=== PATIENT | female | born 1980 | race Caucasian/White ===

== ENCOUNTER 2022-08-22 16:58 | Outpatient (CLI) | payer OTHER, SELFPAY ==
--- NOTE | 2022-08-22 | DI.RAD_ITS ---
Exam(s) XR KNEE LT 3V AP,LAT,DARY EXAM: XR KNEE LT 3V AP,LAT,DARY CLINICAL HISTORY: LEFT KNEE PAIN M25.562 TRIPPED AND JAMMED KNEE HX 2 SURGERIES. TECHNIQUE: 2D digital imaging was performed of the left knee. Three images were obtained. Merchant ,AP, lateral and PA tunnel views were obtained. COMPARISON: No exams were available for comparison FINDINGS: BONES: No acute fracture is present. No bony destructive lesion is seen. Postsurgical changes in the proximal tibia. JOINTS: The knee is normally aligned. No joint effusion is seen. SOFT TISSUE: Normal. IMPRESSION: No acute fracture or dislocation. DATA REPOSITORY: RADIATION DOSE DELIVERED:
--- OUTSIDE RECORDS SUMMARY | 2022-08-22 17:00 | XMS_ITS | Continuity of Care Document ---
Author Name Unknown Organization [facility] Address [address] [place] [address] Encounter NCTY_MI Date(s): 06/01/22 - 06/01/[address] [id number] Encounter Diagnosis Knee pain(Discharge Diagnosis) - 06/01/22 Discharge Disposition: Home or Self Care Attending Physician: Alejandra Yeboah MD Admitting Physician: Alejandra Yeboah MD Allergies, Adverse Reactions, Alerts No Known Medication Allergies Functional Status 06/01/22 Family Member Travel History No recent t ravel Recent Travel History No recent travel Other exposure to Infectious Disease Non e Medications No Known Medications Mental Status 06/01/22 Eye Opening Response Aiden Spontaneous ly Best Verbal Response Prosser Oriented Best Motor Response Aiden Obeys comman ds Prosser Coma Score 15 Results Laboratory List Name Date Drug Screen Urine 06/01/22 Urinalysis with Micro if Indicated and C ulture if Indicated 06/01/22 Alcohol Level 06/01/22 CBC w/ Diff 06/01/22 Comprehensive Metabolic Panel 06/01/22 Automated Diff 06/01/22 Most recent to oldest [Reference Range]: 1 WBC [5.0-10.0 x10^3/mcL] 5.8 x10^3/mcL (06/01/22 10:16 AM) RBC [4.1-5.3 x10^6/mcL] 4.3 x10^6/mcL (06/01/22 10:16 AM) Neutro Auto [40.0-75.0 %] 59.1 % (06/01/22 10:16 AM) Lymph Auto [20.0-50.0 %] 30.2 % (06/01/22 10:16 AM) [place] Auto [2.0-15.0 %] 5.7 % (06/01/22 10:16 AM) Basophil Auto [0.0-1.0 %] 1.0 % (06/01/22 10:16 AM) BUN [7-18 mg/dL] 15 mg/dL (06/01/22 10:16 AM) U Amph Scrn [Negative] Negative (06/01/22 11:15 AM) UA Color Straw (06/01/22:15 AM) Glucose Level [74-106 mg/dL] 100 mg/dL (06/01/22 10:16 AM) Potassium Level [3.5-5.1 mmol/L] 3.8 mmo l/L (06/01/22 10:16 AM) U Benzodia Scrn [Negative] Negative (06/01/22 11:15 AM) MCV [80.0-96.0] 100.7 *HI* (06/01/22 10:16 AM) UA Urobilinogen Normal (06/01/22 11:15 AM) UA Bili [Negative] Negative (06/01/22 11:15 AM) UA Ketones Negative (06/01/22 11:15 AM) AST [15-37 unit/L] 23 unit/L (06/01/22 10:16 AM) ALT [14-59 unit/L] 38 unit/L (06/01/22 10:16 AM) MCHC [31.0-35.0 g/dL] 32.9 g/dL (06/01/22 10:16 AM) Sodium Level [136-145 mmol/L] 144 mmol/L (06/01/22 10:16 AM) UA Leuk Est Negative (06/01/22 11:15 AM) UA Nitrite Negative (06/01/22 11:15 AM) UA Glucose [Negative] Negative (06/01/22 11:15 AM) Hct [37.0-47.0 %] 42.9 % (06/01/22 10:16 AM) U Cocaine Scrn [Negative] Negative (06/01/22 11:15 AM) Calcium Level [8.5-10.1 mg/dL] 9.3 mg/dL (06/01/22 10:16 AM) Albumin Level [3.4-5.0 g/dL] 4.0 g/dL (06/01/22 10:16 AM) Protein Total [6.4-8.2 g/dL] 7.2 g/dL (06/01/22 10:16 AM) UA Protein Negative (06/01/22 11:15 AM) MCH [26.0-32.0 pg] 33.1 pg *HI* (06/01/22 10:16 AM) Neutro Absolute 3.4 x10^3/mcL *NA* (06/01/22 10:16 AM) Bilirubin Total [0.2-1.0 mg/dL] 0.2 mg/d L (06/01/22 10:16 AM) Hgb [12.0-16.0 g/dL] 14.1 g/dL (06/01/22 10:16 AM) Alk Phos [46-146 unit/L] 79 unit/L (06/01/22 10:16 AM) UA Blood Negative (06/01/22 11:15 AM) Ethanol Level [0-10 mg/dL] 277 mg/dL *HI* (06/01/22 10:16 AM) UA Spec Grav <=1.005 *NA* (06/01/22 11:15 AM) Platelets [130-450 x10^3/mcL] 257 x10^3/ mcL (06/01/22 10:16 AM) CO2 [21-32 mmol/L] 27 mmol/L (06/01/22 10:16 AM) U Dania Scrn [Negative] Negative (06/01/22 11:15 AM) UA pH 6.0 *NA* (06/01/22 11:15 AM) U Opiate Scrn [Negative] Negative (06/01/22 11:15 AM) eGFR Non-AA [>=60] 88 (06/01/22 10:16 AM) eGFR AA [>=60] 88 (06/01/22 10:16 AM) UA Appear Clear (06/01/22 11:15 AM) Chloride Level [98-107 mmol/L] 106 mmol/ L (06/01/22 10:16 AM) U Oxy Scrn [Negative] Negative (06/01/22 11:15 AM) U PCP Scrn [Negative] Negative (06/01/22 11:15 AM) RDW-CV [11.7-17.0 %] 13.2 % (06/01/22 10:16 AM) U THC Scr [Negative] Positive *ABN* (06/01/22 11:15 AM) U PPX Scr [Negative] Negative (06/01/22 11:15 AM) U Methadone Scr [Negative] Negative (06/01/22 11:15 AM) Imm Gran Auto [0.0-0.9 %] 0.2 % (06/01/22 10:16 AM) U Buprenorph Scr [Negative] Negative (06/01/22 11:15 AM) U mAMP Scr [Negative] Negative (06/01/22 11:15 AM) U TCA Scr [Negative] Negative (06/01/22 11:15 AM) Creatinine Level [0.55-1.02 mg/dL] 0.85 mg/dL (06/01/22 10:16 AM) Eos, Auto [1.0-6.0 %] 3.8 % (06/01/22 10:16 AM) Vital Signs Most recent to oldest [Reference Range]: 1 2 Temperature Temporal Artery [36-38 Deg C ] 35.9 Deg C *LOW* (06/01/22 9:29 AM) Peripheral Pulse Rate [60-100 bpm] 88 bp m (06/01/22 10:45 AM) 89 bpm (06/01/22 9:29 AM) Respiratory Rate [12-24 br/min] 16 br/mi n (06/01/22 10:45 AM) 18 br/min (06/01/22 9:29 AM) Blood Pressure [90-140/60-90 mmHg] 123/9 0mmHg (06/01/22 10:45 AM) 134/98mmHg (06/01/22 9:29 AM) Weight Dosing 77.11 kg (06/01/22 9:40 AM) Weight Estimated 77.11 kg (06/01/22 9:29 AM) Height/Length Dosing 172.000 cm (06/01/22 9:40 AM) Height/Length Estimated 172.000 cm (06/01/22 9:29 AM) Social History Social History Type Response Tobacco Never tobacco user T obacco Use:. Sex Female Hospital Discharge Instructions Patient Education 06/01/2022 10:57:15 Acute Pain, Adult Acute Pain, Adult Acute pain is a type of sudden pain that may last for just a few days or for as long as six months.It is often related to an illness, injury, or medical procedure. Acute pain may be mild, moderate, or severe. Pain can make it hard for you to do your normal, daily activities. It can cause anxiety and lead toother problems if it is left untreated. Treatment depends on the cause and severity of your pain. Acute pain usually goes away once your injury has healed or you are no longer ill. Follow these instructions at home: Medicines ??? Take pygl-bea-nnxeexe and prescription medicines only as told by your health care provider. ??? Take the lowest dose of medicine for the shortest amount of time needed to relieve the pain. ??? If you are taking prescription pain medicine: ??? Do not stop taking the medicine suddenly. Talk to your health care provider about how and when to discontinue prescription medicine. ??? Do not take more pills than told by your health care provider even if your pain is severe. ??? Do not take other hpqv-fdo-yuetzdx pain medicines in addition to prescription pain medicine unless told by your health care provider. ??? Ask your health care provider if the medicine requires you to avoid driving or using heavy machinery. ??? Ask your health care provider if the medicine can cause constipation. You may need to take these actions to prevent or treat constipation: ??? Drink enough fluid to keep your urine pale yellow. ??? Eat foods that are high in fiber, such as beans, whole grains, and fresh fruits and vegetables. ??? Take iwpm-ymn-tehiytu or prescription medicines. ??? Limit foods that are high in fat and processed sugars, such as fried or sweet foods. Managing pain, stiffness, and swelling If directed, put ice on the affected area. To do this: ??? Put ice in a plastic bag. ??? Place a towel between your skin and the bag. ??? Leave the ice on for 20 minutes, 2???3 times a day. If directed, apply heat to the affected area as often as told by your health care provider. Use theheat source that your health care provider recommends, such as a moist heat pack or a heating pad. ??? Place a towel between your skin and the heat source. ??? Leave the heat on for 20???30 minutes. ??? Remove the heat if your skin turns bright red. This is especially important if you are unable to feel pain, heat, or cold. You may have a greater risk of getting burned. Activity ??? Rest as told by your health care provider. ??? Return to your normal activities as told by your health care provider. Ask your health care provider what activities are safe for you. General instructions ??? Check your pain level as told by your health care provider. ??? Ask your health care provider if other strategies such as distraction, relaxation, or physical therapies can help your pain. ??? Keep all follow-up visits as told by your health care provider. This is important. Contact a health care provider if: ??? Your pain is not controlled by medicine. ??? Your pain does not improve or gets worse. ??? You have side effects from pain medicines, such as vomiting or confusion. Get help right away if you: ??? Have severe pain. ??? Have trouble breathing. ??? Lose consciousness. ??? Have chest pain or pressure that lasts for more than a few minutes, or if you have other symptoms along with chest pain, including if you: ??? Have pain or discomfort in one or both arms, your back, neck, jaw, or stomach. ??? Have shortness of breath. ??? Break out in a cold sweat. ??? Feel nauseous. ??? Become light-headed. These symptoms may represent a serious problem that is an emergency. Do not wait to see if the symptoms will go away. Get medical help right away. Call your local emergency services (911 in the [place] Do not drive yourself to the hospital. Summary ??? Acute pain may be mild, moderate, or severe. It usually goes away once your injury has healed or you are no longer ill. ??? Take woeb-xgf-bhogxti and prescription medicines only as told by your health care provider. ??? Ask your health care provider if the medicine prescribed to you can cause constipation. ??? Contact a health care provider if your pain is not controlled by medicine. This information is not intended to replace advice given to you by your health care provider. Make sure you discuss any questions you have with your health care provider. Document Revised: 08/08/2019 Document Reviewed: 08/08/2019 Elsevier Patient Education ?? 2021 [employer]. 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 Last night she took for the first time a 5 mg edible or ??marajuana and and smoked a few hits and drank alcohol as well (She drank 1-2 drinks) pt states I'm out of it. PT keeps sta History Of Present Illness: Patient seemed altered this morning patient had taken 5 mg??of an edible last night??it did not seem to do anything for her pain so she took a couple??hits off of??marijuana pipe??she then told her that she later had??couple of drinks.?? When he went to wake her up this morning she seemed quite out of it.?? 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 Patient is very nervous about being here she has had 16 surgeries on her leftknee has neuropathy Review of Systems: see hpi for ros Physical Exam Vitals & Measurements T:??35.9?C ??(Temporal Artery)?? HR:??88??(Peripheral)?? RR:??16?? BP:??123/90?? SpO2:??99%?? HT:??172.000??cm?? WT:??77.11??kg??(Estimated)?? O2 Therapy:??Room air?? General: Alert and oriented, well nourished,?No??acute distress Eye: PER?Normal??conjunctiva,??No??scleral icterus HENT: Normocephalic,??nontraumatic??Normal hearing Lungs: Clear to auscultation,?Non-labored?? respiration Heart:?Normal?? rate,?Regular??rhythm,?No??murmur,?No??gallop,?No??edema Chest: wall excursion wnl no abnormal movements no obvious deformities Abdomen: Soft, non-tender, non-distended,??No??masses Musculoskeletal:?Normal?? range of motion and strength,??tenderness of left knee however appearsto be chronic??normal range of motion??of left hip??area??does not appear to be acute??left knee pain Skin: Skin is warm, dry and pink,?No??rashes,?No??lesions Neurologic: Awake, alert and oriented Psychiatric: Cooperative, appropriate mood and affect Medical Decision Making: For MDM please see under assessment and plan Procedure No Qualifying Data Assessment/Plan 1.??Knee pain??M25.569 Patient with chronic left knee pain patient had tried to treat her pain??with a drink??last night??and thinks that she may have drank more than she??thus causing her altered mental status did discusswith her??that her elbow may also have contributed since that was a new??substance that she had taken.?? Encouraged her to try to follow-up with pain specialist tomorrow??patient is discouraged that she has tried 17 different??physician she states regarding her knee pain.?? Patient is discharged into the care of her . Ordered: Discharge Patient, 06/01/22 11:57:00 EST, Home Independently, Constant Indicator ?? Patient Education Acute Pain, Adult Follow Up With When Contact Information Follow up with primary care provider Within 1 to 2 weeks Additional Instructions: Problem List/Past Medical History Ongoing No qualifying data Historical No qualifying data Medication Administration Given 0.9% NaCl bolus, 1 L, IV Bolus Ativan, 0.5 mg, IV Push Allergies No Known Medication Allergies Social History Alcohol Current, Liquor, 3-5 times per week Electronic Cigarette/Vaping Electronic Cigarette Use: Never. Substance Use Marijuana Tobacco Never tobacco user Tobacco Use:. Lab Results CBC and Differential?? LATEST RESULTS?? WBC?? 06/01/22 10:16?? 5.8?? RBC?? 06/01/22 10:16?? 4.3?? Hgb?? 06/01/22 10:16?? 14.1?? Hct?? 06/01/22 10:16?? 42.9?? MCV?? 06/01/22 10:16?? 100.7 ??High?? MCH?? 06/01/22 10:16?? 33.1 ??High?? MCHC?? 06/01/22 10:16?? 32.9?? RDW-CV?? 06/01/22 10:16?? 13.2?? Platelets?? 06/01/22 10:16?? 257?? Neutro Auto?? 06/01/22 10:16?? 59.1?? Lymph Auto?? 06/01/22 10:16?? 30.2?? [place] Auto?? 06/01/22 10:16?? 5.7?? Eos, Auto?? 06/01/22 10:16?? 3.8?? Basophil Auto?? 06/01/22 10:16?? 1.0?? Imm Gran Auto?? 06/01/22 10:16?? 0.2?? Neutro Absolute?? 06/01/22 10:16?? 3.4? Routine Chemistry?? LATEST RESULTS?? Sodium Level?? 06/01/22 10:16?? 144?? Potassium Level?? 06/01/22 10:16?? 3.8?? Chloride Level?? 06/01/22 10:16?? 106?? CO2?? 06/01/22 10:16?? 27?? Alk Phos?? 06/01/22 10:16?? 79?? AST?? 06/01/22 10:16?? 23?? ALT?? 06/01/22 10:16?? 38?? BUN?? 06/01/22 10:16?? 15?? Glucose Level?? 06/01/22 10:16?? 100?? Creatinine Level?? 06/01/22 10:16?? 0.85?? eGFR AA?? 06/01/22 10:16?? 88?? eGFR Non-AA?? 06/01/22 10:16?? 88?? Calcium Level?? 06/01/22 10:16?? 9.3?? Protein Total?? 06/01/22 10:16?? 7.2?? Albumin Level?? 06/01/22 10:16?? 4.0?? Bilirubin Total?? 06/01/22 10:16?? 0.2? Serum Toxicology?? LATEST RESULTS?? Ethanol Level?? 06/01/22 10:16?? 277 ??High? Urine Toxicology?? LATEST RESULTS?? U Amph Scrn?? 06/01/22 11:15?? Negative?? U Dania Scrn?? 06/01/22 11:15?? Negative?? U Benzodia Scrn?? 06/01/22 11:15?? Negative?? U Buprenorph Scr?? 06/01/22 11:15?? Negative?? U Cocaine Scrn?? 06/01/22 11:15?? Negative?? U TCA Scr?? 06/01/22 11:15?? Negative?? U THC Scr?? 06/01/22 11:15?? Positive Abnormal?? U mAMP Scr?? 06/01/22 11:15?? Negative?? U Methadone Scr?? 06/01/22 11:15?? Negative?? U Opiate Scrn?? 06/01/22 11:15?? Negative?? U Oxy Scrn?? 06/01/22 11:15?? Negative?? U PCP Scrn?? 06/01/22 11:15?? Negative?? U PPX Scr?? 06/01/22 11:15?? Negative? UA Macroscopic?? LATEST RESULTS?? UA Color?? 06/01/22 11:15?? Straw?? UA Appear?? 06/01/22 11:15?? Clear?? UA Glucose?? 06/01/22 11:15?? Negative?? UA Bili?? 06/01/22 11:15?? Negative?? UA Ketones?? 06/01/22 11:15?? Negative?? UA Spec Grav?? 06/01/22 11:15?? <=1.005?? UA Blood?? 06/01/22 11:15?? Negative?? UA pH?? 06/01/22 11:15?? 6.0?? UA Protein?? 06/01/22 11:15?? Negative?? UA Urobilinogen?? 06/01/22 11:15?? Normal?? UA Nitrite?? 06/01/22 11:15?? Negative?? UA Leuk Est?? 06/01/22 11:15?? Negative? Electronically Signed on 06/01/22 11:58 AM Alejandra Yeboah MD Emergency department Discharge instructions * Alejandra Yeboah MD: PERFORM Event Display: ED Discharge Information Authored Date: [id number] LACYEVY :1980 Age:42 years Sex:Female Visit Date:06/01/2022 Discharge Instructions We would like to thank you for allowing us to assist you with your healthcare needs. The following includes patient education materials and information regarding your injury/illness. Diagnosis from Today's Visit Knee pain Discharge Vitals Temperature??(Temporal Artery) 96.6 ??F (35.9 ??C) Heart Rate??(Peripheral) 88 Respiratory Rate?? 16 Blood Pressure?? 123/90?? Height?? 67.72 in (172.000 cm) Weight??(Estimated) 170.03 lb (77.11 kg) Allergies No Known Medication Allergies What to Do Next You Need to Schedule the Following Appointments Follow Up with??Follow up with primary care provider When:??Within 1 to 2 weeks You were treated today on an emergency basis; it may be baer to contact your primary care provider to notify them of your visit today. You may have been referred to your regular doctor or a specialist, please follow up as instructed. If your condition worsens or you can't get in to see the doctor, contact the Emergency Department. Education Materials Acute Pain, Adult Acute pain is a type of sudden pain that may last for just a few days or for as long as six months.It is often related to an illness, injury, or medical procedure. Acute pain may be mild, moderate, or severe. Pain can make it hard for you to do your normal, daily activities. It can cause anxiety and lead toother problems if it is left untreated. Treatment depends on the cause and severity of your pain. Acute pain usually goes away once your injury has healed or you are no longer ill. Follow these instructions at home: Medicines ? Take jmru-lxo-qbobjub and prescription medicines only as told by your health care provider. ? Take the lowest dose of medicine for the shortest amount of time needed to relieve the pain. ? If you are taking prescription pain medicine: ? Do not stop taking the medicine suddenly. Talk to your health care provider about how and when to discontinue prescription medicine. ? Do not take more pills than told by your health care provider even if your pain is severe. ? Do not take other rscq-kss-ynwaaiw pain medicines in addition to prescription pain medicine unless told by your health care provider. ? Ask your health care provider if the medicine requires you to avoid driving or using heavy machinery. ? Ask your health care provider if the medicine can cause constipation. You may need to take these actions to prevent or treat constipation: ? Drink enough fluid to keep your urine pale yellow. ? Eat foods that are high in fiber, such as beans, whole grains, and fresh fruits and vegetables. ? Take chng-uev-wiaabzd or prescription medicines. ? Limit foods that are high in fat and processed sugars, such as fried or sweet foods. Managing pain, stiffness, and swelling If directed, put ice on the affected area. To do this: ? Put ice in a plastic bag. ? Place a towel between your skin and the bag. ? Leave the ice on for 20 minutes, 2???3 times a day. If directed, apply heat to the affected area as often as told by your health care provider. Use theheat source that your health care provider recommends, such as a moist heat pack or a heating pad. ? Place a towel between your skin and the heat source. ? Leave the heat on for 20???30 minutes. ? Remove the heat if your skin turns bright red. This is especially important if you are unable to feel pain, heat, or cold. You may have a greater risk of getting burned. Activity ? Rest as told by your health care provider. ? Return to your normal activities as told by your health care provider. Ask your health care provider what activities are safe for you. General instructions ? Check your pain level as told by your health care provider. ? Ask your health care provider if other strategies such as distraction, relaxation, or physical therapies can help your pain. ? Keep all follow-up visits as told by your health care provider. This is important. Contact a health care provider if: ? Your pain is not controlled by medicine. ? Your pain does not improve or gets worse. ? You have side effects from pain medicines, such as vomiting or confusion. Get help right away if you: ? Have severe pain. ? Have trouble breathing. ? Lose consciousness. ? Have chest pain or pressure that lasts for more than a few minutes, or if you have other symptoms along with chest pain, including if you: ? Have pain or discomfort in one or both arms, your back, neck, jaw, or stomach. ? Have shortness of breath. ? Break out in a cold sweat. ? Feel nauseous. ? Become light-headed. These symptoms may represent a serious problem that is an emergency. Do not wait to see if the symptoms will go away. Get medical help right away. Call your local emergency services (911 in the [place] Do not drive yourself to the hospital. Summary ? Acute pain may be mild, moderate, or severe. It usually goes away once your injury has healed or you are no longer ill. ? Take zwau-ein-uktxhpu and prescription medicines only as told by your health care provider. ? Ask your health care provider if the medicine prescribed to you can cause constipation. ? Contact a health care provider if your pain is not controlled by medicine. This information is not intended to replace advice given to you by your health care provider. Make sure you discuss any questions you have with your health care provider. Document Revised: 08/08/2019 Document Reviewed: 08/08/2019 Elsevier Patient Education ?? 2021 [employer] Tests Performed Medications and Immunizations Administered Given 0.9% NaCl bolus, 1 L, IV Bolus Ativan, 0.5 mg, IV Push Lab Test Name Test Result Date/Time WBC 5.8 x10^3/mcL 06/01/2022 10:16 EST RBC 4.3 x10^6/mcL 06/01/2022 10:16 EST Hgb 14.1 g/dL 06/01/2022 10:16 EST Hct 42.9 % 06/01/2022 10:16 EST MCV 100.7 06/01/2022 10:16 EST MCH 33.1 pg 06/01/2022 10:16 EST MCHC 32.9 g/dL 06/01/2022 10:16 EST RDW-CV 13.2 % 06/01/2022 10:16 EST Platelets 257 x10^3/mcL 06/01/2022 10:16 EST Neutro Auto 59.1 % 06/01/2022 10:16 EST Lymph Auto 30.2 % 06/01/2022 10:16 EST [place] Auto 5.7 % 06/01/2022 10:16 EST Eos, Auto 3.8 % 06/01/2022 10:16 EST Basophil Auto 1.0 % 06/01/2022 10:16 EST Imm Gran Auto 0.2 % 06/01/2022 10:16 EST Neutro Absolute 3.4 x10^3/mcL 06/01/2022 10:16 EST Sodium Level 144 mmol/L 06/01/2022 10:16 EST Potassium Level 3.8 mmol/L 06/01/2022 10:16 EST Chloride Level 106 mmol/L 06/01/2022 10:16 EST CO2 27 mmol/L 06/01/2022 10:16 EST Alk Phos 79 unit/L 06/01/2022 10:16 EST AST 23 unit/L 06/01/2022 10:16 EST ALT 38 unit/L 06/01/2022 10:16 EST BUN 15 mg/dL 06/01/2022 10:16 EST Glucose Level 100 mg/dL 06/01/2022 10:16 EST Creatinine Level 0.85 mg/dL 06/01/2022 10:16 EST eGFR AA 88 06/01/2022 10:16 EST eGFR Non-AA 88 06/01/2022 10:16 EST Calcium Level 9.3 mg/dL 06/01/2022 10:16 EST Protein Total 7.2 g/dL 06/01/2022 10:16 EST Albumin Level 4.0 g/dL 06/01/2022 10:16 EST Bilirubin Total 0.2 mg/dL 06/01/2022 10:16 EST Ethanol Level 277 mg/dL 06/01/2022 10:16 EST U Amph Scrn NEGATIVE 06/01/2022 11:15 EST U Dania Scrn NEGATIVE 06/01/2022 11:15 EST U Benzodia Scrn NEGATIVE 06/01/2022 11:15 EST U Buprenorph Scr NEGATIVE 06/01/2022 11:15 EST U Cocaine Scrn NEGATIVE 06/01/2022 11:15 EST U TCA Scr NEGATIVE 06/01/2022 11:15 EST U THC Scr POSITIVE 06/01/2022 11:15 EST U mAMP Scr NEGATIVE 06/01/2022 11:15 EST U Methadone Scr NEGATIVE 06/01/2022 11:15 EST U Opiate Scrn NEGATIVE 06/01/2022 11:15 EST U Oxy Scrn NEGATIVE 06/01/2022 11:15 EST U PCP Scrn NEGATIVE 06/01/2022 11:15 EST U PPX Scr NEGATIVE 06/01/2022 11:15 EST UA Color STRAW. 06/01/2022 11:15 EST UA Appear CLEAR. 06/01/2022 11:15 EST UA Glucose NEGATIVE 06/01/2022 11:15 EST UA Bili NEGATIVE 06/01/2022 11:15 EST UA Ketones NEGATIVE 06/01/2022 11:15 EST UA Spec Grav <=1.005 06/01/2022 11:15 EST UA Blood NEGATIVE 06/01/2022 11:15 EST UA pH 6.0 06/01/2022 11:15 EST UA Protein NEGATIVE 06/01/2022 11:15 EST UA Urobilinogen 0.2 Uro 06/01/2022 11:15 EST UA Nitrite NEGATIVE 06/01/2022 11:15 EST UA Leuk Est NEGATIVE 06/01/2022 11:15 EST Patient/Prepper Signature Patient Name:EVY LACY I have received this information and my questions have been answered. Patient/Prepper Name: Patient/Prepper Signature: Relationship to Patient: Witness Name/Signature: Date: Electronically Signed on: 06/01/2022 11:57 ESTSigned by:[facility] Emergency department Note * Loretta Elam: PERFORM Event Display: ED Notes Authored Date: [id number] Patient Care team information Care Team Personnel Name: Leela Elias Position: Nurse Member Role: ED Nurse Name: Alejandra Yeboah MD Position: Physician Member Role: Admitting Physician Address: Address: [address] [place] [id number]- [id number] Team Related Persons Name: NAYANA LACY Address: [address], [id number] Name: JENNIFER LACY
== END 2022-08-22 17:18 ==
LOC: DI 16:58
PROVIDERS: Visit Provider Physician Assistant Medical
DX: M25.562 Pain in left knee (principal); W19.XXXA Unspecified fall, initial encounter
CPT/HCPCS: 73562